=== PATIENT | male | born 1930 | race Caucasian/White ===

== ENCOUNTER → 2016-05-24 | Outpatient (CLI) | payer MEDICARE, OTHER ==
[2016-05-24 12:35] LABS: ABSOLUTE EOSINOPHILS # (AUTO) 0.1 10^3/uL (0.0-0.6); ABSOLUTE LYMPHOCYTES (AUTO) 1.2 10^3/uL (0.5-4.7); ABSOLUTE MONOCYTES (AUTO) 0.6 10^3/uL (0.1-1.4); ABSOLUTE NEUT (AUTO) 3.1 10^3/uL (1.7-8.2); BASOPHILS % (AUTO) 0.7 % (0-2); EOSINOPHILS % (AUTO) 2.8 % (0-6); HEMATOCRIT 44.1 % (37.9-51.0); HGB HCT DIFFERENCE 0.9; LYMPHOCYTES % (AUTO) 23.1 % (13-45); MEAN CORPUSCULAR HEMOGLOBIN 33.4 pg (27.0-33.4); MEAN CORPUSCULAR VOLUME 98 fl (80-97); MONOCYTES % (AUTO) 12.3 % (3-13); RED BLOOD COUNT 4.49 10^6/uL (4.35-5.55); RED CELL DISTRIBUTION WIDTH 14.1 % (11.5-14.0); SEGMENTED NEUTROPHILS % (AUTO) 61.1 % (42-78)
[2016-05-24 12:51] LABS: ALANINE AMINOTRANSFERASE 31 U/L (21-72); ALBUMIN 4.4 g/dL (3.5-5.0); ALKALINE PHOSPHATASE 77 U/L (38-126); ANION GAP 9 (5-19); ASPARTATE AMINO TRANSFERASE 25 U/L (17-59); BILIRUBIN,TOTAL 0.9 mg/dL (0.2-1.3); BLOOD UREA NITROGEN 26 mg/dL (7-20); CALCIUM 9.6 mg/dL (8.4-10.2); CARBON DIOXIDE 31 mmol/L (22-30); CHLORIDE 102 mmol/L (98-107); CHOLESTEROL 165.71 mg/dL (0-200); Direct HDL 68 mg/dL (>40); GLUCOSE 100 mg/dL (75-110); SODIUM 142.2 mmol/L (137-145); TOTAL PROTEIN 6.9 g/dL (6.3-8.2); TRIGLYCERIDES 88 mg/dL (<150)
[2016-05-24 13:08] LABS: DIRECT LDL 70 mg/dL (<100)
== END ==
LOC: OD 11:25
DX: Z12.5 Encounter for screening for malignant neoplasm of prostate (principal); E55.9 Vitamin D deficiency, unspecified; E53.8 Deficiency of other specified B group vitamins; I34.0 Nonrheumatic mitral (valve) insufficiency; Z79.899 Other long term (current) drug therapy
CPT/HCPCS: 36415; 84443; 85025; 80053; 84630; 83036; 80061; G0103

== ENCOUNTER 2018-12-02 13:40 | Inpatient (IN) | payer MEDICARE ==
--- NOTE | 2018-12-02 13:57 | ER Document Report ---
ED Medical Screen (RME) - General Chief Complaint: Anemia Stated Complaint: ABNORMAL LABS Time Seen by Provider: 12/02/18 13:48 Primary Care Provider: CHRIS BENJAMIN MD [Primary Care Provider] - Follow up as needed Mode of Arrival: Wheelchair Information source: Patient, Relative Notes: This 88-year-old male presents to the emergency department sent over by his primary care provider Dr. orellana in [place]. He reports he was told that his blood levels were low. Patient reports he was not feeling that well so he went to see his primary care provider on Saturday where they did x-rays and blood work. Patient reports he has been feeling very weak. Patient gives history of ulcers back in the 80s. Also has history of high blood pressure. Denies vomiting denies black stools. reports he is pale and does not eat that much at all. I have greeted and performed a rapid initial assessment of this patient. A comprehensive ED assessment and evaluation of the patient, analysis of test results and completion of the medical decision making process will be conducted by additional ED providers. Dictation of this chart was performed using voice recognition software; therefore, there may be some unintended grammatical errors. TRAVEL OUTSIDE OF THE [place] IN LAST 30 DAYS: No - Related Data Allergies/Adverse Reactions: No Known Drug Allergies Allergy (Verified 12/02/18 13:42) Past Medical History - Past Medical History Cardiac Medical History: Reports: Hx Hypertension Denies: Hx Coronary Artery Disease, Hx Heart Attack Pulmonary Medical History: Denies: Hx Asthma, Hx Bronchitis, Hx COPD, Hx Pneumonia Neurological Medical History: Denies: Hx Cerebrovascular Accident, Hx Seizures Musculoskeltal Medical History: Reports Hx Arthritis - Immunizations Hx Diphtheria, Pertussis, Tetanus Vaccination: No Doctor's Discharge - Discharge Referrals: CHRIS BENJAMIN MD [Primary Care Provider] - Follow up as needed
[2018-12-02] MEDS ORDERED: NORMAL SALINE 250 ML IV PRN (14:28)
[2018-12-02 14:44] LABS: ABSOLUTE BASOPHILS # (AUTO) 0.1 10^3/uL (0.0-0.2); ABSOLUTE EOSINOPHILS # (AUTO) 0.1 10^3/uL (0.0-0.6); ABSOLUTE LYMPHOCYTES (AUTO) 1.1 10^3/uL (0.5-4.7); ABSOLUTE MONOCYTES (AUTO) 0.6 10^3/uL (0.1-1.4); BASOPHILS % (AUTO) 1.1 % (0-2); HEMATOCRIT 19.7 % (37.9-51.0); LYMPHOCYTES % (AUTO) 22.5 % (13-45); MEAN CORPUSCULAR HEMOGLOBIN 26.8 pg (27.0-33.4); MEAN CORPUSCULAR HGB CONC 31.7 g/dL (32.0-36.0); MEAN CORPUSCULAR VOLUME 85 fl (80-97); MONOCYTES % (AUTO) 12.2 % (3-13); PLATELET COUNT 219 10^3/uL (150-450); RED BLOOD COUNT 2.33 10^6/uL (4.35-5.55); RED CELL DISTRIBUTION WIDTH 15.6 % (11.5-14.0); SEGMENTED NEUTROPHILS % (AUTO) 62.2 % (42-78); TOTAL CELLS COUNTED % (AUTO) 100 %; WHITE BLOOD COUNT 4.8 10^3/uL (4.0-10.5)
[2018-12-02 14:50] LABS: HEMOGLOBIN 6.3 g/dL (13.5-17.0)
[2018-12-02 15:01] LABS: ALBUMIN 3.7 g/dL (3.5-5.0); ALKALINE PHOSPHATASE 63 U/L (38-126); ANION GAP 6 (5-19); ASPARTATE AMINO TRANSFERASE 21 U/L (17-59); BILIRUBIN,DIRECT 0.1 mg/dL (0.0-0.4); BILIRUBIN,TOTAL 0.3 mg/dL (0.2-1.3); BLOOD UREA NITROGEN 25 mg/dL (7-20); CALCIUM 8.9 mg/dL (8.4-10.2); CARBON DIOXIDE 29 mmol/L (22-30); CHLORIDE 106 mmol/L (98-107); GLUCOSE 108 mg/dL (75-110); POTASSIUM 4.1 mmol/L (3.6-5.0); TOTAL PROTEIN 5.8 g/dL (6.3-8.2)
--- NOTE | 2018-12-02 15:13 | ER Document Report ---
ED General - General Chief Complaint: Anemia Stated Complaint: ABNORMAL LABS Time Seen by Provider: 12/02/18 13:48 Primary Care Provider: CHRIS BENJAMIN MD [[facility]] - Follow up as needed Mode of Arrival: Wheelchair Notes: Patient is an 88-year-old male seen by primary care provider yesterday for some abdominal discomfort. Lab studies were done and the primary care provider's office called the patient today to tell him that his hemoglobin was low and he needed to come to the hospital. Patient has not noticed any blood in his stools or any black stools. Has not had any vomiting. Patient does have a history of an ulcer back in the 80s. No other gastrointestinal disorders or diseases. Denies any fevers. TRAVEL OUTSIDE OF THE [place] IN LAST 30 DAYS: No - Related Data Allergies/Adverse Reactions: No Known Drug Allergies Allergy (Verified 12/02/18 13:42) Past Medical History - General Information source: Patient, Relative - Social History Smoking Status: Former Smoker Frequency of alcohol use: None Drug Abuse: None Family History: Reviewed & Not Pertinent Patient has suicidal ideation: No Patient has homicidal ideation: No - Past Medical History Cardiac Medical History: Reports: Hx Hypertension, Other - Leaky heart valve Musculoskeletal Medical History: Reports Hx Arthritis - Immunizations Hx Diphtheria, Pertussis, Tetanus Vaccination: No Review of Systems - Review of Systems Notes: REVIEW OF SYSTEMS: CONSTITUTIONAL : Denies fever. EENT: Denies eye, ear, nose or mouth or throat pain or other symptoms. CARDIOVASCULAR: Denies chest pain. History of leaky valve. RESPIRATORY: Denies cough, chest congestion, or shortness of breath. GASTROINTESTINAL: Patient has had some abdominal discomfort recently, but no nausea or vomiting or diarrhea. Constipated if anything. Denies any blood in his stools or black stools. GENITOURINARY: Denies difficulty or painful urinating, urinary frequency, blood in urine. MUSCULOSKELETAL: Denies back or neck pain. Denies joint pain or swelling. SKIN: Denies rash or skin lesions. NEUROLOGICAL: Denies LOC or altered mental status. Denies headache. Denies sensory loss or motor deficits. ALL OTHER SYSTEMS REVIEWED AND NEGATIVE. Physical Exam - Vital signs Vitals: Temp Pulse Resp BP Pulse Ox 98.4 F 78 16 139/65 H 97 12/02/18 13:52 12/02/18 13:52 12/02/18 13:52 12/02/18 13:52 12/02/18 13:52 Interpretation: Normal Notes: PHYSICAL EXAMINATION: GENERAL: Well-appearing, in no acute distress. HEAD: Atraumatic, normocephalic. EYES: Pupils equal round and reactive to light, extraocular movements intact. ENT: oropharynx clear without exudates. Moist mucous membranes. NECK: Normal range of motion, supple. LUNGS: Breath sounds clear and equal bilaterally. HEART: Regular rate and rhythm with 4/6 systolic murmur. ABDOMEN: Soft, nontender. No guarding or rebound. No masses. Rectal exam with dark stool that stains positive with Hemoccult testing. BACK: No tenderness throughout entire back. EXTREMITIES: Normal range of motion without pain. NEUROLOGICAL: Normal speech, normal gait. Normal sensory, motor, and reflex exams. Awake, alert, and oriented x3. Cranial nerves normal. PSYCH: Normal mood, normal affect. SKIN: Warm, dry, no rashes. Course - Re-evaluation Re-evalutation: 12/02/18 15:23 Patient is typed and crossed for couple units of blood. Hospitalist contacted and they will admit the patient. I did also contact the surgeon who is agreeable to being back up for endoscopy as needed. - Vital Signs Vital signs: Temp Pulse Resp BP Pulse Ox 98.4 F 78 16 139/65 H 97 12/02/18 13:52 12/02/18 13:52 12/02/18 13:52 12/02/18 13:52 12/02/18 13:52 - Laboratory Result Diagrams: 12/02/18 14:26 12/02/18 14:26 Laboratory results interpreted by me: 12/02/18 12/02/18 12/02/18 14:26 14:26 14:26 RBC 2.33 L Hgb 6.3 L Hct 19.7 L MCH 26.8 L MCHC 31.7 L RDW 15.6 H BUN 25 H Total Protein 5.8 L Urine Protein Ur Leukocyte Esterase Crossmatch See Detail 12/02/18 15:23 RBC Hgb Hct MCH MCHC RDW BUN Total Protein Urine Protein 30 H Ur Leukocyte Esterase SMALL H Crossmatch - EKG Interpretation by Ut EKG shows normal: Sinus rhythm Discharge - Discharge Clinical Impression: Anemia, Lower GI bleed Condition: Stable Disposition: ADMITTED INPATIENT Admitting Provider: Fernando (Hospitalist) Unit Admitted: Medical Floor Referrals: CHRIS BENJAMIN MD [[facility]] - Follow up as needed
[2018-12-02 15:45] LABS: APPEARANCE,URINE CLEAR; BILIRUBIN,URINE NEGATIVE (NEGATIVE); COLOR,URINE YELLOW; GLUCOSE, URINE NEGATIVE (NEGATIVE); KETONES,URINE NEGATIVE (NEGATIVE); LEUKOCYTE ESTERASE,URINE SMALL (NEGATIVE); NITRITE,URINE NEGATIVE (NEGATIVE); PROTEIN,URINE 30 mg/dL (NEGATIVE); URINE SPECIFIC GRAVITY 1.017; UROBILINOGEN,URINE NEGATIVE mg/dL (<2.0)
--- NOTE | 2018-12-02 16:38 | PDOC CONSULTATION ---
Consultation Consult Date: 12/02/18 Attending physician:: PHIL RICKETTS Provider Consulted: PATRICIA SEGURA Consult reason:: gi bleed, anemia History of Present Illness Admission Date/PCP: 12/02/18 16:15 JENNIFER JIN MD History of Present Illness: JENNIFER PEACE is a 88 year old malePatient seen by primary care provider yesterday for some abdominal discomfort. Lab studies were done and the primary care provider's office called the patient today to tell him that his hemoglobin was low and he needed to come to the hospital. Patient has not noticed any blood in his stools or any black stools. Has not had any vomiting. Patient does have a history of an ulcer back in the 80s. No other gastrointestinal disorders or diseases. Denies any fevers. Past Medical History Cardiac Medical History: Reports: Hypertension, Other - Leaky heart valve Denies: Coronary Artery Disease, Myocardial Infarction Pulmonary Medical History: Denies: Asthma, Bronchitis, Chronic Obstructive Pulmonary Disease (COPD), Pneumonia Neurological Medical History: Denies: Seizures Musculoskeltal Medical History: Reports: Arthritis Social History Smoking Status: Former Smoker Family History Family History: Reviewed & Not Pertinent Parental Family History Reviewed: No Children Family History Reviewed: NA Sibling(s) Family History Reviewed.: NA Medication/Allergy Allergies/Adverse Reactions: No Known Drug Allergies Allergy (Verified 12/02/18 13:42) Review of Systems Constitutional: ABSENT: as per HPI, anorexia, chills, fatigue, fever(s), headache(s), night sweats, weakness, weight gain, weight loss, other Eyes: ABSENT: as per HPI, visual disturbances, other Ears: ABSENT: as per HPI, hearing changes, other Nose, Mouth, and Throat: ABSENT: as per HPI, headache(s), mouth pain, sore throat, vertigo, other Breasts: ABSENT: as per HPI, other Cardiovascular: ABSENT: as per HPI, chest pain, dyspnea on exertion, edema, orthropnea, palpitations, other Respiratory: ABSENT: as per HPI, cough, dyspnea, hemoptysis, sputum, other Gastrointestinal: PRESENT: abdominal pain Genitourinary: ABSENT: as per HPI, difficulty urinating, dysuria, hematuria, nocturia, other Musculoskeletal: ABSENT: as per HPI, back pain, deformity, joint swelling, muscle weakness, other Neurological: ABSENT: as per HPI, abnormal gait, abnormal movements, abnormal speech, confusion, convulsions, dizziness, focal weakness, frequent falls, lack of coordination, memory loss, numbness, paresthesias, restless legs, syncope, tingling, tremor(s), vertigo, weakness, other Psychiatric: ABSENT: as per HPI, anxiety, depression, hallucinations, homidical ideation, suicidal ideation, other Hematologic/Lymphatic: ABSENT: as per HPI, easy bleeding, easy bruising, lymphadenopathy, other Allergic/Immunologic: ABSENT: as per HPI, seasonal rhinorrhea, other Physical Exam Vital Signs: Temp Pulse Resp BP Pulse Ox 97.5 F 83 16 151/73 H 100 12/02/18 16:12 12/02/18 16:12 12/02/18 13:52 12/02/18 16:12 12/02/18 16:12 Intake & Output 12/01/18 12/02/18 12/03/18 06:59 06:59 06:59 Intake Total 0 Balance 0 Weight 56.1 kg General appearance: PRESENT: no acute distress Head exam: PRESENT: normocephalic Eye exam: PRESENT: EOMI Ear exam: PRESENT: TM's normal bilaterally Mouth exam: PRESENT: moist Neck exam: PRESENT: full ROM Respiratory exam: PRESENT: clear to auscultation aman Cardiovascular exam: PRESENT: RRR Pulses: PRESENT: +2 pedal pulses bilateral GI/Abdominal exam: PRESENT: soft Rectal exam: PRESENT: deferred, heme (+) stool Extremities exam: PRESENT: full ROM Musculoskeletal exam: PRESENT: full ROM Neurological exam: PRESENT: alert, awake, oriented to person, oriented to place Psychiatric exam: PRESENT: appropriate affect Skin exam: PRESENT: dry Results Laboratory Results: 12/02/18 14:26 12/02/18 14:26 12/02/18 12/02/18 12/02/18 14:26 14:26 14:26 WBC 4.8 RBC 2.33 L Hgb 6.3 L Hct 19.7 L MCV 85 MCH 26.8 L MCHC 31.7 L RDW 15.6 H Plt Count 219 Seg Neutrophils % 62.2 Sodium 140.9 Potassium 4.1 Chloride 106 Carbon Dioxide 29 Anion Gap 6 BUN 25 H Creatinine 0.84 Est GFR ( Amer) > 60 Glucose 108 Calcium 8.9 Total Bilirubin 0.3 AST 21 Alkaline Phosphatase 63 Total Protein 5.8 L Albumin 3.7 Urine Color Urine Appearance Urine pH Ur Specific [place] Urine Protein Urine Glucose (UA) Urine Ketones Urine Blood Urine Nitrite Ur Leukocyte Esterase Urine WBC (Auto) Urine RBC (Auto) Blood Type O POSITIVE Antibody Screen NEGATIVE 12/02/18 15:23 WBC RBC Hgb Hct MCV MCH MCHC RDW Plt Count Seg Neutrophils % Sodium Potassium Chloride Carbon Dioxide Anion Gap BUN Creatinine Est GFR ( Amer) Glucose Calcium Total Bilirubin AST Alkaline Phosphatase Total Protein Albumin Urine Color YELLOW Urine Appearance CLEAR Urine pH 7.0 Ur Specific [place] 1.017 Urine Protein 30 H Urine Glucose (UA) NEGATIVE Urine Ketones NEGATIVE Urine Blood NEGATIVE Urine Nitrite NEGATIVE Ur Leukocyte Esterase SMALL H Urine WBC (Auto) 15 Urine RBC (Auto) 1 Blood Type Antibody Screen Assessment & Plan - Plan Summary Plan Summary: abd pain, heme + stools anemia recent colo 2 ys ago neg plan pt to have ct scan will plan on colo/upper endoscopy pending those results surgery will follow.
--- NOTE | 2018-12-02 16:41 | PDOC H&P ---
History of Present Illness Admission Date/PCP: JENNIFER JIN MD Patient complains of: Abdominal discomfort History of Present Illness: JENNIFER PEACE is a 88 year old male who is generally healthy and does not take any blood thinners. He only has history of macular degeneration. Patient apparently was complaining of diffuse vague abdominal discomfort for couple weeks or so. He went to see his primary care physician who did blood work found that the patient is severely anemic and did not refer him to the emergency room. Patient denies vomiting, hematemesis, melena or hematochezia. No chest pain or shortness of breath. In the emergency room his hemoglobin was 6.3 and he tested positive for stool occult blood. Past Medical History Cardiac Medical History: Reports: Hypertension, Other - Leaky heart valve Denies: Coronary Artery Disease, Myocardial Infarction Pulmonary Medical History: Denies: Asthma, Bronchitis, Chronic Obstructive Pulmonary Disease (COPD), Pneumonia Neurological Medical History: Denies: Seizures Musculoskeltal Medical History: Reports: Arthritis Social History Smoking Status: Former Smoker Family History Family History: Reviewed & Not Pertinent Parental Family History Reviewed: Yes Children Family History Reviewed: Yes Sibling(s) Family History Reviewed.: Yes Medication/Allergy Allergies/Adverse Reactions: No Known Drug Allergies Allergy (Verified 12/02/18 13:42) Review of Systems All systems: reviewed and no additional remarkable complaints except as stated Physical Exam Vital Signs: Temp Pulse Resp BP Pulse Ox 97.5 F 83 16 151/73 H 100 12/02/18 16:12 12/02/18 16:12 12/02/18 13:52 12/02/18 16:12 12/02/18 16:12 Intake & Output 12/01/18 12/02/18 12/03/18 06:59 06:59 06:59 Intake Total 0 Balance 0 Weight 123 lb 10.869 oz Exam: Patient is no acute distress Alert oriented to time place person No anxiety or depression Head: atraumatic normocephalic Pupils: are equal reactive Neck: is supple and trachea is central no lymphadenopathy No pharyngeal erythema or exudates Heart: Regular rate and rhythm Lungs: clear no distress Abdomen: nontender nondistended Neurological exam: unremarkable Musculoskeletal: No joint swelling or effusion chronic lower back pain and tenderness No suicidal or homicidal ideation Results Laboratory Results: 12/02/18 14:26 12/02/18 14:26 12/02/18 12/02/18 12/02/18 14:26 14:26 14:26 WBC 4.8 RBC 2.33 L Hgb 6.3 L Hct 19.7 L MCV 85 MCH 26.8 L MCHC 31.7 L RDW 15.6 H Plt Count 219 Seg Neutrophils % 62.2 Sodium 140.9 Potassium 4.1 Chloride 106 Carbon Dioxide 29 Anion Gap 6 BUN 25 H Creatinine 0.84 Est GFR ( Amer) > 60 Glucose 108 Calcium 8.9 Total Bilirubin 0.3 AST 21 Alkaline Phosphatase 63 Total Protein 5.8 L Albumin 3.7 Urine Color Urine Appearance Urine pH Ur Specific [place] Urine Protein Urine Glucose (UA) Urine Ketones Urine Blood Urine Nitrite Ur Leukocyte Esterase Urine WBC (Auto) Urine RBC (Auto) Blood Type O POSITIVE Antibody Screen NEGATIVE 12/02/18 15:23 WBC RBC Hgb Hct MCV MCH MCHC RDW Plt Count Seg Neutrophils % Sodium Potassium Chloride Carbon Dioxide Anion Gap BUN Creatinine Est GFR ( Amer) Glucose Calcium Total Bilirubin AST Alkaline Phosphatase Total Protein Albumin Urine Color YELLOW Urine Appearance CLEAR Urine pH 7.0 Ur Specific [place] 1.017 Urine Protein 30 H Urine Glucose (UA) NEGATIVE Urine Ketones NEGATIVE Urine Blood NEGATIVE Urine Nitrite NEGATIVE Ur Leukocyte Esterase SMALL H Urine WBC (Auto) 15 Urine RBC (Auto) 1 Blood Type Antibody Screen Assessment and Plan - Diagnosis (1) Anemia Is this a current diagnosis for this admission?: Yes Plan: Patient already ordered 2 units of blood by emergency care physician. He is to start the first unit immediately. Monitor hemoglobin hematocrit. (2) Lower GI bleed Is this a current diagnosis for this admission?: Yes Plan: Patient tested positive for stool occult blood in his stool was reported as dark black/blue by the ER physician. Will get CT scan of the abdomen stat. Will consult surgery for possible colonoscopy/EGD. We will keep him n.p.o. for now. Started on IV fluids.
--- NOTE | 2018-12-02 17:05 | RADIOLOGY REPORT (SQ) ---
EXAM DESCRIPTION: CHEST SINGLE VIEW COMPLETED DATE/TIME: 12/02/2018 4:53 pm REASON FOR STUDY: Heart murmur COMPARISON: None. NUMBER OF VIEWS: One view. TECHNIQUE: Single frontal radiographic view of the chest acquired. LIMITATIONS: None. FINDINGS: LUNGS AND PLEURA: No opacities, masses or pneumothorax. No pleural effusion. Attenuated bl ood vessels and flattened garrett-diaphragms. MEDIASTINUM AND HILAR STRUCTURES: No masses. Contour normal. HEART AND VASCULAR STRUCTURES: Heart normal in size. Normal vasculature. BONES: No acute findings. HARDWARE: None in the chest. OTHER: No other significant finding. IMPRESSION: COPD. NO ACUTE RADIOGRAPHIC FINDING IN THE CHEST. TECHNICAL DOCUMENTATION: JOB ID: [id number] [employer]- All Rights Reserved Reading location - IP/workstation name: [email or web address]
--- NOTE | 2018-12-02 18:43 | EKG REPORT ---
SEVERITY:- ABNORMAL ECG - SINUS RHYTHM LEFT ANTERIOR FASCICULAR BLOCK NONSPECIFIC T ABNORMALITIES, ANT-LAT LEADS : Confirmed by: Khurram Tang MD 02-Dec-2018 18:42:24
--- NOTE | 2018-12-02 19:16 | RADIOLOGY REPORT (SQ) ---
EXAM DESCRIPTION: CT ABD/PELVIS WITH IV ORAL COMPLETED DATE/TIME: 12/02/2018 7:00 pm REASON FOR STUDY: GI bleeding COMPARISON: None. TECHNIQUE: CT scan of the abdomen and pelvis performed using helical scanning technique with dynamic intravenous contrast injection. No oral contrast. Images reviewed with lung, soft tissue, and bone windows. Reconstructed coronal and sagittal MPR images reviewed. Delayed images for evaluation of the urinary system also acquired. All images stored on PACS. All CT scanners at this facility use dose modulation, iterative reconstruction, and/or weight based d osing when appropriate to reduce radiation dose to as low as reasonably achievable (ALARA). [facility]: Dose Right [facility]: CareDose [facility]: Dose Right [facility]: Teradose 4D [facility]: BIO-IVT Group CONTRAST TYPE AND DOSE: 64 cc Omnipaque 350- low osmolar. RENAL FUNCTION: GFR > 60. RADIATION DOSE: . LIMITATIONS: Artifact lower lumbar fusion. FINDINGS: LOWER CHEST: Cardiomegaly. LIVER: Normal size. No masses. No dilated ducts. SPLEEN: Normal size. No focal lesions. PANCREAS: No masses. No significant calcifications. No adjacent inflammation or peripancreatic fluid collections. Pancreatic duct not dilated. GALLBLADDER: No identified stones by CT criteria. No inflammatory changes to suggest cholecystitis. ADRENAL GLANDS: No significant masses or asymmetry. RIGHT KIDNEY AND URETER: No solid masses. 2 mm stone upper pole. Cortical cysts. No hydronephros is or hydroureter. LEFT KIDNEY AND URETER: No solid masses. Several renal calculi, largest 6 mm. No ureteral calculi identified. Mild dilatation of the UPJ. AORTA AND VESSELS: No aneurysm. RETROPERITONEUM: No retroperitoneal adenopathy, hemorrhage or masses. BOWEL AND PERITONEAL CAVITY: Sigmoid diverticulosis. No masses or inflammatory changes. No free flui d or peritoneal masses. APPENDIX: Not visualized. PELVIS: No mass. No free fluid. Normal bladder. ABDOMINAL WALL: No masses. No hernias. BONES: Nothing acute. OTHER: No other significant finding. IMPRESSION: Bilateral renal calculi. Mild left hydronephrosis without visualized ureteral calculi. TECHNICAL DOCUMENTATION: JOB ID: [id number] Quality ID # [id number]: Final reports with documentation of one or more dose reduction techniques (e.g., Au tomated exposure control, adjustment of the mA and/or kV according to patient size, use of iterative reconstruction technique) 2010 [employer]- All Rights Reserved Reading location - IP/workstation name: [email or web address]
[2018-12-03] MEDS: DEXTROSE 5%-LACTATED RINGERS 1,000 ML IV PRN ×2 (00:49→21:00)
[2018-12-03 02:32] LABS: ABSOLUTE BASOPHILS # (AUTO) 0.1 10^3/uL (0.0-0.2); ABSOLUTE EOSINOPHILS # (AUTO) 0.2 10^3/uL (0.0-0.6); ABSOLUTE LYMPHOCYTES (AUTO) 1.5 10^3/uL (0.5-4.7); ABSOLUTE MONOCYTES (AUTO) 0.8 10^3/uL (0.1-1.4); ABSOLUTE NEUT (AUTO) 3.7 10^3/uL (1.7-8.2); BASOPHILS % (AUTO) 1.1 % (0-2); EOSINOPHILS % (AUTO) 2.9 % (0-6); HEMATOCRIT 26.1 % (37.9-51.0); LYMPHOCYTES % (AUTO) 23.5 % (13-45); MEAN CORPUSCULAR HEMOGLOBIN 27.1 pg (27.0-33.4); MEAN CORPUSCULAR VOLUME 82 fl (80-97); MONOCYTES % (AUTO) 13.1 % (3-13); PLATELET COUNT 193 10^3/uL (150-450); RED BLOOD COUNT 3.18 10^6/uL (4.35-5.55); RED CELL DISTRIBUTION WIDTH 16.1 % (11.5-14.0); SEGMENTED NEUTROPHILS % (AUTO) 59.4 % (42-78); TOTAL CELLS COUNTED % (AUTO) 100 %; WHITE BLOOD COUNT 6.2 10^3/uL (4.0-10.5)
[2018-12-03 02:33] LABS: HEMOGLOBIN 8.6 g/dL (13.5-17.0)
[2018-12-03 06:51] LABS: ABSOLUTE RETICS # 0.049 10^6/uL (0.028-0.122); HEMATOCRIT 26.9 % (37.9-51.0); MEAN CORPUSCULAR HEMOGLOBIN 27.6 pg (27.0-33.4); MEAN CORPUSCULAR HGB CONC 33.3 g/dL (32.0-36.0); MEAN CORPUSCULAR VOLUME 83 fl (80-97); PLATELET COUNT 191 10^3/uL (150-450); RED BLOOD COUNT 3.25 10^6/uL (4.35-5.55); RED CELL DISTRIBUTION WIDTH 15.8 % (11.5-14.0); RETICULOCYTE COUNT (AUTO) 1.52 % (0.66-2.85); WHITE BLOOD COUNT 5.9 10^3/uL (4.0-10.5)
[2018-12-03 07:09] LABS: ANION GAP 8 (5-19); BLOOD UREA NITROGEN 17 mg/dL (7-20); CALCIUM 8.6 mg/dL (8.4-10.2); CARBON DIOXIDE 26 mmol/L (22-30); CHLORIDE 105 mmol/L (98-107); GLUCOSE 96 mg/dL (75-110); IRON(TIBC) 324.3 ug/dL (49-181); POTASSIUM 3.9 mmol/L (3.6-5.0)
[2018-12-03 08:23] LABS: FOLATE > 20.00 ng/mL (>2.76)
--- NOTE | 2018-12-03 12:12 | PDOC PROGRESS REPORT ---
Subjective Progress Note for:: 12/03/18 Subjective:: Feels well with no complaints. Patient denies any history of blood per rectum nor melena. He does have a history of diverticulosis as well as peptic ulcer disease in the past. Reason For Visit: GI BLEEDING/ANEMIA Physical Exam Vital Signs: Temp Pulse Resp BP Pulse Ox 98.1 F 68 16 139/67 H 99 12/03/18 08:41 12/03/18 08:41 12/03/18 08:41 12/03/18 08:41 12/03/18 01:30 Intake & Output 12/02/18 12/03/18 12/04/18 06:59 06:59 06:59 Intake Total 900 Output Total 975 Balance -75 Weight 56.6 kg General appearance: PRESENT: no acute distress, cooperative Cardiovascular exam: PRESENT: RRR GI/Abdominal exam: PRESENT: other - Soft nondistended nontender to palpation with no stigmata of portal hypertension. No palpable abnormal masses. Results Laboratory Results: 12/03/18 06:07 12/03/18 06:07 12/02/18 12/02/18 12/02/18 14:26 14:26 14:26 WBC 4.8 RBC 2.33 L Hgb 6.3 L Hct 19.7 L MCV 85 MCH 26.8 L MCHC 31.7 L RDW 15.6 H Plt Count 219 Seg Neutrophils % 62.2 Retic Count (auto) Sodium 140.9 Potassium 4.1 Chloride 106 Carbon Dioxide 29 Anion Gap 6 BUN 25 H Creatinine 0.84 Est GFR ( Amer) > 60 Glucose 108 Calcium 8.9 Iron TIBC % Saturation Ferritin Total Bilirubin 0.3 AST 21 Alkaline Phosphatase 63 Total Protein 5.8 L Albumin 3.7 Vitamin B12 Folate Urine Color Urine Appearance Urine pH Ur Specific [place] Urine Protein Urine Glucose (UA) Urine Ketones Urine Blood Urine Nitrite Ur Leukocyte Esterase Urine WBC (Auto) Urine RBC (Auto) Blood Type O POSITIVE Antibody Screen NEGATIVE 12/02/18 12/03/18 12/03/18 15:23 02:22 06:07 WBC 6.2 5.9 RBC 3.18 L 3.25 L Hgb 8.6 L D 9.0 L Hct 26.1 L 26.9 L MCV 82 83 MCH 27.1 27.6 MCHC 33.0 33.3 RDW 16.1 H 15.8 H Plt Count 193 191 Seg Neutrophils % 59.4 Retic Count (auto) 1.52 Sodium Potassium Chloride Carbon Dioxide Anion Gap BUN Creatinine Est GFR ( Amer) Glucose Calcium Iron TIBC % Saturation Ferritin Total Bilirubin AST Alkaline Phosphatase Total Protein Albumin Vitamin B12 Folate Urine Color YELLOW Urine Appearance CLEAR Urine pH 7.0 Ur Specific [place] 1.017 Urine Protein 30 H Urine Glucose (UA) NEGATIVE Urine Ketones NEGATIVE Urine Blood NEGATIVE Urine Nitrite NEGATIVE Ur Leukocyte Esterase SMALL H Urine WBC (Auto) 15 Urine RBC (Auto) 1 Blood Type Antibody Screen 12/03/18 06:07 WBC RBC Hgb Hct MCV MCH MCHC RDW Plt Count Seg Neutrophils % Retic Count (auto) Sodium 138.9 Potassium 3.9 Chloride 105 Carbon Dioxide 26 Anion Gap 8 BUN 17 Creatinine 0.76 Est GFR ( Amer) > 60 Glucose 96 Calcium 8.6 Iron 324.3 H TIBC 428 % Saturation 76 Ferritin 10.70 L Total Bilirubin AST Alkaline Phosphatase Total Protein Albumin Vitamin B12 964.0 H Folate > 20.00 Urine Color Urine Appearance Urine pH Ur Specific [place] Urine Protein Urine Glucose (UA) Urine Ketones Urine Blood Urine Nitrite Ur Leukocyte Esterase Urine WBC (Auto) Urine RBC (Auto) Blood Type Antibody Screen Impressions: Abdomen/Pelvis CT 12/02/18 00:00 IMPRESSION: Bilateral renal calculi. Mild left hydronephrosis without visualized ureteral calculi. Chest X-Ray 12/02/18 14:30 IMPRESSION: COPD. NO ACUTE RADIOGRAPHIC FINDING IN THE CHEST. Assessment & Plan - Diagnosis (1) Anemia Is this a current diagnosis for this admission?: Yes Plan: Likely chronic blood loss. Patient would benefit from upper and lower endoscopy. Will start a bowel prep today. Gastroenterology is telephone coin box collector today. I have asked the hospitalist to consult gastroenterology for endoscopy tomorrow since our surgicalist tomorrow does not do scopes.
[2018-12-03] MEDS ORDERED: PEG 3350/NA SULF,BICARB,CL/KCL 4000 ML PO ONE (14:00)
--- NOTE | 2018-12-03 17:36 | Progress Note ---
Provider Note Provider Note: the patient has been seen by the surgical service, Initial consult done by Dr Allen and today's follow up note by Dr May there is no need to enter a new consult, since the is no new information that needs to be documented that isn't already been stated I will be able to perform all procedures as discussed with the patient tomorrow Dr May has written prep orders I will put the patient on the schedule further recommendations to follow I did look at the previous reports performed by Dr Kimble, patient appears to have positive H.Pylori, some internal hemorrhoids, diverticulosis and a benign polyp on previous exam it is unclear if he was treated he had heme positive stools and I agree with surgical recommendations as outlined by Dr May
--- NOTE | 2018-12-03 18:25 | PDOC PROGRESS REPORT ---
Subjective Progress Note for:: 12/03/18 Subjective:: The patient is resting comfortably in bed. His is at the bedside. He is quite hard of hearing. He reports having no pain. He has not been passing bloody stool. His hemoglobin has been stable since his transfusion yesterday. Reason For Visit: GI BLEEDING/ANEMIA Physical Exam Vital Signs: Temp Pulse Resp BP Pulse Ox 97.6 F 68 20 150/73 H 100 12/03/18 16:25 12/03/18 16:25 12/03/18 11:25 12/03/18 16:25 12/03/18 16:25 Intake & Output 12/02/18 12/03/18 12/04/18 06:59 06:59 06:59 Intake Total 900 1500 Output Total 975 780 Balance -75 720 Weight 56.6 kg General appearance: PRESENT: no acute distress, cooperative, thin Head exam: PRESENT: atraumatic, normocephalic Eye exam: PRESENT: conjunctiva pale, EOMI. ABSENT: scleral icterus Ear exam: PRESENT: normal external ear exam. ABSENT: bleeding, drainage Mouth exam: PRESENT: dry mucosa, neck supple, tongue midline Respiratory exam: PRESENT: clear to auscultation aman, symmetrical, unlabored. ABSENT: rales, rhonchi, tachypnea, wheezes Cardiovascular exam: PRESENT: RRR, +S1, +S2, systolic murmur - 4/6 GI/Abdominal exam: PRESENT: normal bowel sounds, soft. ABSENT: distended, guarding, tenderness Rectal exam: PRESENT: deferred Extremities exam: ABSENT: calf tenderness, joint swelling, pedal edema Musculoskeletal exam: PRESENT: ambulatory, other - Decreased muscle mass. ABSENT: deformity Neurological exam: PRESENT: alert, awake, oriented to person, oriented to place, oriented to time, oriented to situation, other - Hearing loss Psychiatric exam: PRESENT: appropriate affect. ABSENT: agitated, anxious Focused psych exam: ABSENT: delusional, restlessness Skin exam: PRESENT: dry, pallor, warm. ABSENT: rash Results Laboratory Results: 12/03/18 06:07 12/03/18 06:07 12/02/18 12/03/18 12/03/18 14:26 02:22 06:07 WBC 6.2 5.9 RBC 3.18 L 3.25 L Hgb 8.6 L D 9.0 L Hct 26.1 L 26.9 L MCV 82 83 MCH 27.1 27.6 MCHC 33.0 33.3 RDW 16.1 H 15.8 H Plt Count 193 191 Seg Neutrophils % 59.4 Retic Count (auto) 1.52 Sodium Potassium Chloride Carbon Dioxide Anion Gap BUN Creatinine Est GFR ( Amer) Glucose Calcium Iron TIBC % Saturation Ferritin Vitamin B12 Folate Blood Type O POSITIVE Antibody Screen NEGATIVE 12/03/18 06:07 WBC RBC Hgb Hct MCV MCH MCHC RDW Plt Count Seg Neutrophils % Retic Count (auto) Sodium 138.9 Potassium 3.9 Chloride 105 Carbon Dioxide 26 Anion Gap 8 BUN 17 Creatinine 0.76 Est GFR ( Amer) > 60 Glucose 96 Calcium 8.6 Iron 324.3 H TIBC 428 % Saturation 76 Ferritin 10.70 L Vitamin B12 964.0 H Folate > 20.00 Blood Type Antibody Screen Impressions: Abdomen/Pelvis CT 12/02/18 00:00 IMPRESSION: Bilateral renal calculi. Mild left hydronephrosis without visualized ureteral calculi. Chest X-Ray 12/02/18 14:30 IMPRESSION: COPD. NO ACUTE RADIOGRAPHIC FINDING IN THE CHEST. Assessment and Plan - Diagnosis (1) Anemia Qualifiers: Iron deficiency anemia type: chronic blood loss Is this a current diagnosis for this admission?: Yes Plan: 12/03/2018-the patient did receive 2 units of packed red blood cells and his hemoglobin is been stable. There is no evidence of iron, folate or B12 deficiency. The anemia is due to blood loss. We will continue to monitor hemoglobin and transfuse if hemoglobin drops below 8.0. (2) Lower GI bleed Is this a current diagnosis for this admission?: Yes Plan: 12/03/2018-appreciate Dr. Rich's input. The patient is starting his bowel prep today and is scheduled for endoscopy tomorrow. Await results of endoscopy before additional treatment plan is established. - Time Time Spent with patient: Less than 15 minutes Medications reviewed and adjusted accordingly: Yes Anticipated discharge: Home
[2018-12-04 06:39] LABS: HEMATOCRIT 30.3 % (37.9-51.0); HEMOGLOBIN 9.9 g/dL (13.5-17.0); MEAN CORPUSCULAR HEMOGLOBIN 27.1 pg (27.0-33.4); MEAN CORPUSCULAR HGB CONC 32.7 g/dL (32.0-36.0); MEAN CORPUSCULAR VOLUME 83 fl (80-97); PLATELET COUNT 210 10^3/uL (150-450); RED BLOOD COUNT 3.65 10^6/uL (4.35-5.55); WHITE BLOOD COUNT 6.5 10^3/uL (4.0-10.5)
[2018-12-04] MEDS: DEXTROSE 5%-LACTATED RINGERS 1,000 ML IV PRN ×2 (11:03→22:50)
[2018-12-04] MEDS ORDERED: PROPOFOL INJ 200 MG/20 ML VIAL IV ONE (13:53)
[2018-12-04] MEDS ORDERED: FENTANYL CITRATE INJ/PF 100 MCG/2 ML AMPUL IV PRN ×3 (15:41)
[2018-12-04] MEDS ORDERED: DIPHENHYDRAMINE HCL 50 MG/ML VIAL IV PRN (15:41)
[2018-12-04] MEDS ORDERED: ONDANSETRON HCL INJ/PF 4 MG/2 ML SDV IV PRN (15:41)
[2018-12-04] MEDS ORDERED: OXYCODONE-ACETAMINOPHEN 5-325 MG TABLET PO PRN ×2 (15:41)
[2018-12-04] MEDS ORDERED: MEPERIDINE HCL/PF INJ 25 MG/1 ML DISP.SYRIN IV PRN (15:41)
[2018-12-04] MEDS ORDERED: MORPHINE SULFATE 10 MG/ML INJ IV PRN (15:41)
--- NOTE | 2018-12-04 17:59 | PDOC PROGRESS REPORT ---
Subjective Progress Note for:: 12/04/18 Subjective:: Just returned from endoscopy. He tolerated the procedures without difficulty. Results are pending. No more epigastric discomfort. Reason For Visit: GI BLEEDING/ANEMIA Physical Exam Vital Signs: Temp Pulse Resp BP Pulse Ox 98.1 F 62 15 120/49 L 99 12/04/18 14:57 12/04/18 15:22 12/04/18 15:22 12/04/18 15:22 12/04/18 15:22 Intake & Output 12/03/18 12/04/18 12/05/18 06:59 06:59 06:59 Intake Total 900 2800 1250 Output Total 975 1180 Balance -75 1620 1250 Weight 56.6 kg 56.8 kg General appearance: PRESENT: no acute distress, cooperative, thin, well- developed Head exam: PRESENT: atraumatic, normocephalic Eye exam: PRESENT: conjunctiva pale. ABSENT: periorbital swelling, scleral icterus Ear exam: PRESENT: normal external ear exam. ABSENT: bleeding, drainage Mouth exam: PRESENT: moist, tongue midline Respiratory exam: PRESENT: clear to auscultation aman, symmetrical, unlabored. ABSENT: prolonged expiratory phas, rales, rhonchi, tachypnea, wheezes Cardiovascular exam: PRESENT: RRR, +S1, +S2, systolic murmur - 4/6 GI/Abdominal exam: PRESENT: normal bowel sounds, soft. ABSENT: distended, guarding, tenderness Extremities exam: ABSENT: joint swelling, pedal edema, tenderness Musculoskeletal exam: PRESENT: ambulatory, normal inspection Neurological exam: PRESENT: alert, awake, oriented to person, oriented to place, oriented to time, oriented to situation. ABSENT: CN II-XII grossly intact - Hearing loss Psychiatric exam: PRESENT: appropriate affect, normal mood. ABSENT: agitated, anxious Focused psych exam: ABSENT: delusional, restlessness Results Laboratory Results: 12/04/18 05:48 12/03/18 06:07 12/04/18 05:48 WBC 6.5 RBC 3.65 L Hgb 9.9 L Hct 30.3 L MCV 83 MCH 27.1 MCHC 32.7 RDW 16.0 H Plt Count 210 Impressions: Abdomen/Pelvis CT 12/02/18 00:00 IMPRESSION: Bilateral renal calculi. Mild left hydronephrosis without visualized ureteral calculi. Chest X-Ray 12/02/18 14:30 IMPRESSION: COPD. NO ACUTE RADIOGRAPHIC FINDING IN THE CHEST. Assessment and Plan - Diagnosis (1) Anemia Qualifiers: Iron deficiency anemia type: chronic blood loss Is this a current diagnosis for this admission?: Yes Plan: 12/03/2018-the patient did receive 2 units of packed red blood cells and his hemoglobin is been stable. There is no evidence of iron, folate or B12 deficiency. The anemia is due to blood loss. We will continue to monitor hemoglobin and transfuse if hemoglobin drops below 8.0. 12/04/2018-posttransfusion the patient's hemoglobin is stable. It was 9.6 today. (2) Lower GI bleed Is this a current diagnosis for this admission?: Yes Plan: 12/03/2018-appreciate Dr. Rich's input. The patient is starting his bowel prep today and is scheduled for endoscopy tomorrow. Await results of endoscopy before additional treatment plan is established. 12/04/2018-the patient tolerated the prep without difficulty. He tolerated endoscopy as well. Await final interpretation. - Time Time Spent with patient: Less than 15 minutes Medications reviewed and adjusted accordingly: Yes Anticipated discharge: Home Within: within 24 hours
[2018-12-05 06:47] LABS: HEMATOCRIT 27.7 % (37.9-51.0); MEAN CORPUSCULAR HEMOGLOBIN 27.2 pg (27.0-33.4); MEAN CORPUSCULAR HGB CONC 32.6 g/dL (32.0-36.0); MEAN CORPUSCULAR VOLUME 83 fl (80-97); PLATELET COUNT 185 10^3/uL (150-450); RED BLOOD COUNT 3.33 10^6/uL (4.35-5.55); RED CELL DISTRIBUTION WIDTH 15.6 % (11.5-14.0); WHITE BLOOD COUNT 5.3 10^3/uL (4.0-10.5)
--- NOTE | 2018-12-05 08:05 | Operative Report ---
Operative Report DATE OF SURGERY: 12/04/18 Operative Report: The risks, benefits and alternatives of the procedure including the risk of bleeding, perforation requiring surgery have been explained to the patient in detail and informed consent has been obtained. The patient is taken back to the operating room and placed in the left, lateral decubital position. Timeout was called. Propofol medication is administered. Rectal examination is done which did not reveal any masses, tears or fissures. An Olympus videoscope was introduced into the patient's rectum. This carefully advanced all the way to the cecum. The cecum was identified by the usual anatomical landmarks of the ileocecal valve as well as the appendiceal office. Photodocumentation is obtained. From that point the scope was then sequentially pulled back via the rest segments of the colon including the ascending colon, hepatic flexure, transverse colon, splenic flexure, descending colon finally into the rectosigmoid portions of the colon. Retroflexion maneuvers performed. The risks benefits and alternatives of the procedure explained to the patient in detail and informed consent is obtained.A GIF Olympus video scope was inserted into the patient's mouth and hypopharynx ,the esophagus is identified intubated and insufflated, the scope was then advanced through the esophagus stomach and duodenum, retroflexion maneuver is done, the esophagus stomach and first and second portions of the duodenum examined. PREOPERATIVE DIAGNOSIS: Possible GI bleeding POSTOPERATIVE DIAGNOSIS: Gastritis status post biopsy without Helicobacter pylori no upper GI bleeding as noted. Normal colonoscopy. Internal hemorrhoids. No active bleeding is noted. Random biopsies obtained OPERATION: Colonoscopy with biopsy. EGD with biopsy SURGEON: GIA QUINTERO ANESTHESIA: LMAC TISSUE REMOVED OR ALTERED: As noted above. COMPLICATIONS: None. ESTIMATED BLOOD LOSS: None. INTRAOPERATIVE FINDINGS: As noted above. PROCEDURE: Patient tolerated procedure well. No immediate postprocedure comp occasions are noted. Patient sent back to his room in good condition. Resume previous diet Resume previous activity level Follow-up biopsies Stable from the GI standpoint follow-up as outpatient
[2018-12-05 14:08] VITALS: BP 145/69
--- NOTE | 2018-12-05 23:04 | PDOC DISCHARGE SUMMARY ---
General - Admit/Disc Date/PCP Admission Date/Primary Care Provider: 12/02/18 16:15 JENNIFER JIN MD Discharge Date: 12/05/18 - Discharge Diagnosis (1) Anemia Is this a current diagnosis for this admission?: Yes Summary: The patient's hemoglobin dropped slightly to 9.0 today. I believe it has to do with the bowel prep and IV fluids. The patient did have iron, B12 and folic ac id levels above the normal range. I suggested that he take the supplements every other day as opposed to daily. He should follow-up with Dr. Jin and recheck his hemoglobin next week as well as recheck iron, B12 and folic acid levels 6 to 8 weeks from now. (2) Lower GI bleed Is this a current diagnosis for this admission?: No Summary: The patient did have some hemorrhoids but no evidence of bleeding in the colon. It is more likely an upper GI bleed. (3) Gastritis Is this a current diagnosis for this admission?: Yes Summary: Endoscopy did reveal gastritis. This is likely chronic slow blood loss. The patient may have intermittent severe gastritis with bleeding versus low-grade loss. The patient's did state that he had an episode of anemia in the past. If there is no more obvious evidence of bleeding and he still continues to be anemic then consultation with hematology might be appropriate versus a video capsule study to check the small bowel. - Additional Information Resuscitation Status: Full Code Discharge Diet: Regular, Other (Comments) Discharge Activity: Activity As Tolerated Home Medications: Clonidine HCl [Catapres 0.1 mg Tablet] 0.1 mg PO Q12 12/02/18 History of Present Illness Patient complains of: Abdominal pain History of Present Illness: JENNIFER PEACE is a 88 year old male with limited past medical history. He has macular degeneration with history of hypertension. He had been complaining of diffuse vague abdominal pain for several weeks. He wants his primary care physician and had blood work performed. With his severe anemia he was referred to the emergency room. He did receive 2 units of packed red blood cells and was referred to the hospital service for admission. Hospital Course Hospital Course: The patient's hospital course showed improvement with proton pump inhibitors. Endoscopy revealed normal colon. Upper endoscopy revealed gastritis but no bleeding or ulcerations. He did receive 2 units of packed red blood cells. His supplements have created folic acid, B12 and iron levels above the normal range. With proton pump inhibitors he feels better. His abdominal discomfort has resolved. He will discharge home and follow-up with his primary care provider. Physical Exam Vital Signs: Temp Pulse Resp BP Pulse Ox 98.0 F 69 18 145/69 H 100 12/05/18 14:02 12/05/18 14:02 12/05/18 14:02 12/05/18 14:02 12/05/18 14:02 Intake & Output 12/04/18 12/05/18 12/06/18 06:59 06:59 06:59 Intake Total 2800 2490 1240 Output Total 1180 1270 400 Balance 1620 1220 840 Weight 56.8 kg 56.4 kg General appearance: PRESENT: no acute distress, cooperative, thin, well- developed Head exam: PRESENT: atraumatic, normocephalic Eye exam: PRESENT: conjunctiva pale. ABSENT: scleral icterus Ear exam: PRESENT: normal external ear exam. ABSENT: drainage Mouth exam: PRESENT: moist, neck supple, tongue midline Respiratory exam: PRESENT: symmetrical, unlabored. ABSENT: rhonchi, tachypnea, wheezes Cardiovascular exam: PRESENT: RRR, +S1, +S2, systolic murmur GI/Abdominal exam: PRESENT: normal bowel sounds, soft. ABSENT: distended, guarding, tenderness Musculoskeletal exam: PRESENT: ambulatory, full ROM, normal inspection Neurological exam: PRESENT: alert, awake, oriented to person, oriented to place, oriented to time, oriented to situation, CN II-XII grossly intact Psychiatric exam: PRESENT: appropriate affect, normal mood. ABSENT: agitated, anxious Focused psych exam: ABSENT: delusional, restlessness Results Laboratory Results: 12/05/18 06:28 12/03/18 06:07 12/05/18 12/05/18 03:53 06:28 WBC Cancelled 5.3 RBC Cancelled 3.33 L Hgb Cancelled 9.0 L Hct Cancelled 27.7 L MCV Cancelled 83 MCH Cancelled 27.2 MCHC Cancelled 32.6 RDW Cancelled 15.6 H Plt Count Cancelled 185 Impressions: Abdomen/Pelvis CT 12/02/18 00:00 IMPRESSION: Bilateral renal calculi. Mild left hydronephrosis without visualized ureteral calculi. Chest X-Ray 09/17/19 14:30 IMPRESSION: COPD. NO ACUTE RADIOGRAPHIC FINDING IN THE CHEST. Qualifiers - * PATIENT BEING DISCHARGED WITH ANY OF THE FOLLOWING DIAGNOSIS: No Acute Heart Failure - Is this a Heart Failure Patient?: No Plan Time Spent: Greater than 30 Minutes
== END 2018-12-05 14:49 | disposition home or self-care (01) | DRG 811 ==
LOC: ER 13:40 → EH 16:15 → 5 19:34
PROVIDERS: ADMIT Family Medicine; ATTEND Family Medicine
PROC: 30233N1 Transfusion of Nonautologous Red Blood Cells into Peripheral Vein, Percutaneous Approach (ICD-10-PCS; 2018-12-02)
PROC: 0DBE8ZX Excision of Large Intestine, Via Natural or Artificial Opening Endoscopic, Diagnostic (ICD-10-PCS; principal; 2018-12-04 13:00)
PROC: 0DB68ZX Excision of Stomach, Via Natural or Artificial Opening Endoscopic, Diagnostic (ICD-10-PCS; 2018-12-04 13:00)
DX: D50.0 Iron deficiency anemia secondary to blood loss (chronic) (principal); K29.71 Gastritis, unspecified, with bleeding; I10 Essential (primary) hypertension; K57.90 Diverticulosis of intestine, part unspecified, without perforation or abscess without bleeding; M19.90 Unspecified osteoarthritis, unspecified site; Z87.891 Personal history of nicotine dependence; H35.30 Unspecified macular degeneration; R19.5 Other fecal abnormalities; K64.8 Other hemorrhoids; Z87.11 Personal history of peptic ulcer disease
CPT/HCPCS: 36415; 36430; 71045; 74177; 80048; 80053; 81001; 82607; 82728; 82746; 83540; 83550; 85025; 85027; 85045; 86850; 86900; 86901; 86920; 88305; 88342; 93005; 93010; 99284; J2704; J3490; J7121; P9016

== ENCOUNTER → 2019-03-30 | Outpatient (CLI) | payer MEDICARE ==
--- NOTE | 2019-03-30 16:10 | RADIOLOGY REPORT (SQ) ---
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 TECHNIQUE: Images of the axial and proximal appendicular skeleton are obtained, along with lateral s kull and frontal chest films. LIMITATIONS: None. FINDINGS: AP CHEST: No bony findings. Lungs are clear. LATERAL SKULL: No worrisome bone lesions. AP BOTH HUMERI: No worrisome bone lesions. TWO-VIEW LUMBAR SPINE: No worrisome bone lesions. Postsurgical changes at L4-L5. TWO-VIEW THORACIC SPINE: No worrisome bone lesions. AP PELVIS: No worrisome bone lesions. AP BOTH FEMURS: No worrisome bone lesions. OTHER: There are degenerative changes in the cervical spine most marked at C4-5, C5-C6 and C6-C7. IMPRESSION: NO WORRISOME BONE LESIONS. TECHNICAL DOCUMENTATION: JOB ID: [id number] [employer]- All Rights Reserved Reading location - IP/workstation name: [email or web address]
== END ==
LOC: RAD 14:45
PROVIDERS: ATTEND Internal Medicine Hematology & Oncology
DX: C90.00 Multiple myeloma not having achieved remission (principal)
CPT/HCPCS: 77075